=== PATIENT | female | born 1960 | race Caucasian/White ===

== ENCOUNTER 2021-09-23 13:36 | Outpatient (CLI) | payer BC | END 2021-09-23 13:37 | disposition home or self-care (01) | LOC: CSHMAMMO 13:36 | PROVIDERS: ATTEND Obstetrics & Gynecology | DX: Z12.31 Encounter for screening mammogram for malignant neoplasm of breast (principal); R92.1 Mammographic calcification found on diagnostic imaging of breast | CPT/HCPCS: 77063; 77067 ==

== ENCOUNTER 2021-10-01 09:02 | Outpatient (CLI) | payer BC | END 2021-10-01 09:03 | disposition home or self-care (01) | LOC: CSHMAMMO 09:02 | PROVIDERS: ATTEND Obstetrics & Gynecology | DX: R92.1 Mammographic calcification found on diagnostic imaging of breast (principal); R92.0 Mammographic microcalcification found on diagnostic imaging of breast | CPT/HCPCS: G0279 ==

== ENCOUNTER 2021-11-19 13:26 | Outpatient (CLI) | payer BC | END 2021-11-19 13:27 | disposition home or self-care (01) | LOC: CSHLAB 13:26 | PROVIDERS: ATTEND Surgery | DX: Z01.818 Encounter for other preprocedural examination (principal); Z20.822 Contact with and (suspected) exposure to COVID-19 | CPT/HCPCS: 87811; 93005; 93010 ==

== ENCOUNTER 2021-11-22 06:25 | Day surgery (SDC) | payer BC ==
[2021-11-20 11:59] VITALS: BMI 29.2
[2021-11-22] MEDS ORDERED: Lidocaine 1% MPF 2 ML VIAL ONE (07:20)
[2021-11-22] MEDS ORDERED: Bupivacaine PF 0.5% 30 ML VIAL ONE (08:11)
[2021-11-22] MEDS ORDERED: EPINEPHrine 1 MG/ML AMP ONE (08:11)
[2021-11-22] MEDS ORDERED: PROPOFOL 20 ML ONE ×2 (08:27→08:59)
[2021-11-22] MEDS ORDERED: Fentanyl 100 MCG/2 ML VIAL ONE ×2 (08:27→09:03)
[2021-11-22] MEDS ORDERED: Midazolam HCl 2 mg/2 ml Vial ONE ×2 (08:28→09:03)
[2021-11-22] MEDS ORDERED: Ondansetron PF 4 MG/2 ML Vial ONE (08:28)
[2021-11-22] MEDS ORDERED: Dexamethasone 20 MG/5 ML VIAL ONE (08:28)
[2021-11-22] MEDS ORDERED: Lidocaine 1% PF 5 ML VIAL ONE (08:28)
[2021-11-22] MEDS ORDERED: CEFAZOLIN 2 GM VIAL ONE (08:40)
[2021-11-22] MEDS ORDERED: Acetaminophen 325 MG TAB PO PRN (10:07)
[2021-11-22] MEDS ORDERED: traMADol HCl 50 MG TAB PO PRN (10:08)
== END 2021-11-22 11:25 | disposition home or self-care (01) ==
LOC: CSHSDC 06:25
PROVIDERS: ATTEND Surgery
PROC: 0HBT0ZX Excision of Right Breast, Open Approach, Diagnostic (ICD-10-PCS; principal; 2021-11-22)
DX: D05.11 Intraductal carcinoma in situ of right breast (principal); N60.91 Unspecified benign mammary dysplasia of right breast; N60.21 Fibroadenosis of right breast; I10 Essential (primary) hypertension; Z79.899 Other long term (current) drug therapy; E78.00 Pure hypercholesterolemia, unspecified; Z20.822 Contact with and (suspected) exposure to COVID-19; Z88.5 Allergy status to narcotic agent
CPT/HCPCS: 19281; 76098; 88307; 88341; 88342; J0171; J0690; J1100; J2250; J2405; J2704; J3010; S0020

== ENCOUNTER 2023-10-09 09:17 | Outpatient (CLI) | payer BC | END 2023-10-09 09:18 | disposition home or self-care (01) | LOC: CSHMAMMO 09:17 | PROVIDERS: ATTEND Surgery | DX: Z08 Encounter for follow-up examination after completed treatment for malignant neoplasm (principal); Z85.3 Personal history of malignant neoplasm of breast | CPT/HCPCS: 77066; G0279 ==